=== PATIENT | female | born 1935 | race Caucasian/White ===

== ENCOUNTER 2019-10-29 05:13 | Inpatient (IN) | payer MEDICARE, OTHER ==
[2019-10-29] MEDS ORDERED: NITROGLYCERIN SL TABS 0.4 MG TAB SUBLINGUAL STA ×2 (05:22)
--- NOTE | 2019-10-29 05:31 | ED ---
SOB HPI - General Stated Complaint: Chest Pain Time Seen by Provider: 10/29/19 05:18 Source: patient, EMS Mode of arrival: EMS Limitations: physical limitation (There is underlying dementia.) - History of Present Illness Initial Comments: Patient is an 84-year-old woman brought to be viral for shortness of breath. That started this morning. EMS reports that when they arrived they found the patient and a tripod position, diaphoretic and having apparent respiratory distress. The patient does have some underlying dementia so history is limited. Patient is denying chest or abdominal pain. She had been given some treatment prior to arrival and on arrival she states her breathing is better area she on arrival is just requesting to have something to eat. MD Complaint: shortness of breath -: hour(s) - Related Data Home Medications Medication Instructions Recorded Confirmed Aspirin EC [Ecotrin Low Dose] 81 mg PO DAILY 10/29/19 10/29/19 Brimonidine Tartrate/Timolol 1 drop BOTH EYES BID 10/29/19 10/29/19 [Combigan 0.2%-0.5% Eye Drops] Latanoprost [Xalatan 0.005%] 1 drop BOTH EYES HS 10/29/19 10/29/19 Memantine [Namenda] 10 mg PO BID 10/29/19 10/29/19 Vit C/E/Zn/Coppr/Lutein/Zeaxan 1 cap PO DAILY 10/29/19 10/29/19 [Preservision Areds 2 Softgel] Previous Rx's Medication Instructions Recorded Carvedilol [Coreg] 3.125 mg PO BID-W/MEALS #60 tab 10/31/19 Lisinopril [Zestril] 10 mg PO 1200 #30 tab 10/31/19 amLODIPine [Norvasc] 5 mg PO DAILY #30 tab 10/31/19 Allergies Allergy/AdvReac Type Severity Reaction Status Date / Time No Known Allergies Allergy Verified 10/29/19 07:35 Review of Systems ROS Statement: Those systems with pertinent positive or pertinent negative responses have been documented in the HPI. ROS Other: All systems not noted in ROS Statement are negative. Limitations: ROS unobtainable due to patients medical condition (Dementia) Constitutional: Denies: fever Respiratory: Reports: dyspnea. Denies: cough, hemoptysis Cardiovascular: Denies: chest pain, palpitations, edema Gastrointestinal: Denies: abdominal pain, vomiting Musculoskeletal: Denies: back pain Neurological: Denies: headache Past Medical History Past Medical History: Hypertension History of Any Multi-Drug Resistant Organisms: None Reported Past Surgical History: Appendectomy Smoking Status: Former smoker Past Alcohol Use History: None Reported Past Drug Use History: None Reported General Exam General appearance: alert, in distress (There is mild respiratory distress) Head exam: Present: atraumatic, normocephalic Eye exam: Present: normal appearance. Absent: scleral icterus, conjunctival injection ENT exam: Present: mucous membranes dry Respiratory exam: Present: respiratory distress, rales. Absent: wheezes, rhonchi, stridor, accessory muscle use, decreased breath sounds, prolonged expiratory Cardiovascular Exam: Present: regular rate, normal rhythm, systolic murmur, gallop. Absent: diastolic murmur, rubs GI/Abdominal exam: Present: soft. Absent: distended, tenderness, guarding, rebo und, rigid, mass Extremities exam: Present: normal inspection, normal capillary refill. Absent: pedal edema, calf tenderness Back exam: Present: normal inspection. Absent: CVA tenderness (R), CVA tenderness (L) Neurological exam: Present: alert Skin exam: Present: dry, intact, normal color, other (Skin is cool). Absent: rash, diaphoretic Course Vital Signs 10/29/19 10/29/19 10/29/19 05:18 05:28 05:35 Temperature Pulse Rate 77 73 71 Pulse Rate [ Pulse Oximetery ] Respiratory 26 H 20 Rate Blood Pressure 187/97 155/82 143/87 Blood Pressure [Left Arm] O2 Sat by Pulse 86 L 93 L 97 Oximetry 10/29/19 10/29/19 10/29/19 05:44 06:30 07:25 Temperature Pulse Rate 63 61 Pulse Rate [ Pulse Oximetery ] Respiratory 24 21 Rate Blood Pressure 143/85 139/79 Blood Pressure [Left Arm] O2 Sat by Pulse 97 95 95 Oximetry 10/29/19 10/29/19 10/29/19 08:00 09:17 12:00 Temperature 97.7 F Pulse Rate Pulse Rate [ 60 60 52 L Pulse Oximetery ] Respiratory 18 18 18 Rate Blood Pressure Blood Pressure 179/87 [Left Arm] O2 Sat by Pulse 93 L Oximetry Medical Decision Making - Lab Data Result diagrams: 10/30/19 05:59 10/30/19 05:59 Lab Results 10/29/19 10/29/19 10/29/19 Range/Units 05:34 05:34 05:34 WBC 6.8 (3.8-10.6) k/uL RBC 4.77 (3.80-5.40) m/uL Hgb 14.2 (11.4-16.0) gm/dL Hct 44.9 (34.0-46.0) % MCV 94.1 (80.0-100.0) fL MCH 29.7 (25.0-35.0) pg MCHC 31.6 (31.0-37.0) g/dL RDW 14.1 (11.5-15.5) % Plt Count 155 (150-450) k/uL Neutrophils % 77 % Lymphocytes % 17 % Monocytes % 3 % Eosinophils % 2 % Basophils % 0 % Neutrophils # 5.2 (1.3-7.7) k/uL Lymphocytes # 1.2 (1.0-4.8) k/uL Monocytes # 0.2 (0-1.0) k/uL Eosinophils # 0.1 (0-0.7) k/uL Basophils # 0.0 (0-0.2) k/uL PT (9.0-12.0) sec INR (<1.2) APTT (22.0-30.0) sec Sodium 139 (137-145) mmol/L Potassium 5.6 H (3.5-5.1) mmol/L Chloride 107 (98-107) mmol/L Carbon Dioxide 25 (22-30) mmol/L Anion Gap 7 mmol/L BUN 34 H (7-17) mg/dL Creatinine 1.00 (0.52-1.04) mg/dL Est GFR (CKD-EPI)AfAm 59 (>60 ml/min/1.73 sqM) Est GFR (CKD-EPI)NonAf 52 (>60 ml/min/1.73 sqM) Glucose 176 H (74-99) mg/dL Calcium 9.0 (8.4-10.2) mg/dL Magnesium 1.9 (1.6-2.3) mg/dL Total Bilirubin 1.8 H (0.2-1.3) mg/dL AST 126 H (14-36) U/L ALT 68 H (4-34) U/L Alkaline Phosphatase 50 (38-126) U/L Troponin I (0.000-0.034) ng/mL NT-Pro-B Natriuret Pep 4250 pg/mL Total Protein 6.9 (6.3-8.2) g/dL Albumin 3.9 (3.5-5.0) g/dL 10/29/19 10/29/19 Range/Units 05:34 05:34 WBC (3.8-10.6) k/uL RBC (3.80-5.40) m/uL Hgb (11.4-16.0) gm/dL Hct (34.0-46.0) % MCV (80.0-100.0) fL MCH (25.0-35.0) pg MCHC (31.0-37.0) g/dL RDW (11.5-15.5) % Plt Count (150-450) k/uL Neutrophils % % Lymphocytes % % Monocytes % % Eosinophils % % Basophils % % Neutrophils # (1.3-7.7) k/uL Lymphocytes # (1.0-4.8) k/uL Monocytes # (0-1.0) k/uL Eosinophils # (0-0.7) k/uL Basophils # (0-0.2) k/uL PT 10.3 (9.0-12.0) sec INR 1.0 (<1.2) APTT 23.7 (22.0-30.0) sec Sodium (137-145) mmol/L Potassium (3.5-5.1) mmol/L Chloride (98-107) mmol/L Carbon Dioxide (22-30) mmol/L Anion Gap mmol/L BUN (7-17) mg/dL Creatinine (0.52-1.04) mg/dL Est GFR (CKD-EPI)AfAm (>60 ml/min/1.73 sqM) Est GFR (CKD-EPI)NonAf (>60 ml/min/1.73 sqM) Glucose (74-99) mg/dL Calcium (8.4-10.2) mg/dL Magnesium (1.6-2.3) mg/dL Total Bilirubin (0.2-1.3) mg/dL AST (14-36) U/L ALT (4-34) U/L Alkaline Phosphatase (38-126) U/L Troponin I 0.019 (0.000-0.034) ng/mL NT-Pro-B Natriuret Pep pg/mL Total Protein (6.3-8.2) g/dL Albumin (3.5-5.0) g/dL - EKG Data -: EKG Interpreted by Me EKG shows normal: sinus rhythm (Rate 73 bpm), axis (Cumming deviation), intervals (QRS duration 148 ms, prolonged consistent with a left axis deviation. IN interval 140 ms, QTC 491 ms, both normal), QRS complexes (Left Bundle-branch block pattern), ST-T waves (Normal) Disposition Clinical Impression: Congestive heart failure, Hypertensive emergency Disposition: ADMITTED IP TO THIS HOSP Condition: Stable Is patient prescribed a controlled substance at d/c from ED?: No
--- NOTE | 2019-10-29 05:46 | XR ---
EXAMINATION TYPE: XR chest 1V portable DATE OF EXAM: 10/29/2019 COMPARISON: NONE HISTORY: Chest pain TECHNIQUE: Single view FINDINGS: Heart is enlarged. There is pulmonary interstitial and alveolar edema. There is slight blun ting costophrenic angles. Thoracic aorta is atheromatous. IMPRESSION: There is pulmonary edema probably from congestive heart failure. Developing RDS is possib le.
[2019-10-29 05:57] LABS: Basophils % (A) 0 %; Eosinophils # (A) 0.1 k/uL (0-0.7); Eosinophils % (A) 2 %; HCT 44.9 % (34.0-46.0); HGB 14.2 gm/dL (11.4-16.0); Lymphocytes # (A) 1.2 k/uL (1.0-4.8); Lymphocytes % (A) 17 %; MCH 29.7 pg (25.0-35.0); MCHC 31.6 g/dL (31.0-37.0); MCV 94.1 fL (80.0-100.0); Mean Platelet Volume 9.5; Monocytes # (A) 0.2 k/uL (0-1.0); Monocytes % (A) 3 %; Neutrophils # (A) 5.2 k/uL (1.3-7.7); Neutrophils % (A) 77 %; Platelet Count 155 k/uL (150-450); RBC 4.77 m/uL (3.80-5.40); RDW 14.1 % (11.5-15.5); WBC 6.8 k/uL (3.8-10.6)
[2019-10-29 06:07] LABS: Albumin 3.9 g/dL (3.5-5.0); Magnesium 1.9 mg/dL (1.6-2.3); Total Bilirubin 1.8 mg/dL (0.2-1.3); Total Protein 6.9 g/dL (6.3-8.2)
[2019-10-29 06:10] LABS: Potassium 5.6 mmol/L (3.5-5.1)
[2019-10-29 06:31] LABS: Partial Thromboplastin Time 23.7 sec (22.0-30.0); Prothrombin Time 10.3 sec (9.0-12.0)
[2019-10-29] MEDS ORDERED: NITROGLYCERIN OINT 1 INCH/GM PACKET TOPICAL STA (07:24)
[2019-10-29] MEDS ORDERED: METOPROLOL SUCCINATE (ER) 25 MG TAB.ER.24H PO SCH ×2 (09:00→10:00)
[2019-10-29] MEDS ORDERED: METOPROLOL TARTRATE 25 MG TAB PO SCH (09:00)
[2019-10-29] MEDS ORDERED: NON FORMULARY DRUG (Brimonidine Tartrate/Timolol [Combigan 0.2%-0.5% Eye Drops] 1 DROP) BOTH EYES SCH (09:00)
[2019-10-29] MEDS: MEMANTINE 10 MG TAB PO SCH ×2 (09:21→20:46)
[2019-10-29] MEDS: FUROSEMIDE 10 MG/ML 4 ML VIAL IV SCH ×2 (09:21→20:46)
[2019-10-29] MEDS ORDERED: hydrALAZINE HCL 20 MG/ML 1 ML VIAL IVP PRN (09:54)
[2019-10-29] MEDS: TIMOLOL 0.5% OPHTH DROPS 5 ML BTL BOTH EYES SCH ×2 (10:02→20:57)
[2019-10-29] MEDS: BRIMONIDINE TARTRATE 0.2% DROPS 5 ML BTL BOTH EYES SCH ×2 (10:03→20:56)
--- NOTE | 2019-10-29 12:57 | P.CRDCN ---
History of Present Illness Consult date: 10/29/19 History of present illness: This is a 84-year-old female with history of hypertension and dementia who was brought to the emergency room with complaints of shortness of breath. Patient denied any chest pain. Patient is claimed that she was taking some water pills also. Patient chest x-ray on admission showed evidence of congestive heart failure. Patient was treated with IV diuretics with improvement of her symptoms. She seemed relatively comfortable. Her EKG showed sinus rhythm with evidence of left bundle-branch block pattern. Lungs at this point appear to be relatively clear. Heart is regular. Since appears that patient has congestive heart failure probably related to systolic dysfunction. We'll get an echocardiogram. We will start her on lisinopril along with Coreg and diuretics. Her potassium is high. Further recommendations depend upon the clinical course and findings on the echocardiogram Review of Systems As per the chart Past Medical History Past Medical History: Hypertension Additional Past Medical History / Comment(s): dementia History of Any Multi-Drug Resistant Organisms: None Reported Past Surgical History: Appendectomy Smoking Status: Former smoker Past Alcohol Use History: None Reported Past Drug Use History: None Reported Medications and Allergies Home Medications Medication Instructions Recorded Confirmed Type Aspirin EC [Ecotrin Low Dose] 81 mg PO DAILY 10/29/19 10/29/19 History Brimonidine Tartrate/Timolol 1 drop BOTH EYES BID 10/29/19 10/29/19 History [Combigan 0.2%-0.5% Eye Drops] Latanoprost [Xalatan 0.005%] 1 drop BOTH EYES HS 10/29/19 10/29/19 History Memantine [Namenda] 10 mg PO BID 10/29/19 10/29/19 History Metoprolol Succinate (ER) [Toprol 25 mg PO DAILY 10/29/19 10/29/19 History Xl] Vit C/E/Zn/Coppr/Lutein/Zeaxan 1 cap PO DAILY 10/29/19 10/29/19 History [Preservision Areds 2 Softgel] Allergies Allergy/AdvReac Type Severity Reaction Status Date / Time No Known Allergies Allergy Verified 10/29/19 07:35 Physical Exam Vitals: Vital Signs Temp Pulse Pulse Resp BP BP Pulse Ox 10/29/19 09:17 97.7 F 60 18 179/87 93 L 10/29/19 08:00 60 18 10/29/19 07:25 95 10/29/19 06:30 61 21 139/79 95 10/29/19 05:44 63 24 143/85 97 10/29/19 05:35 71 20 143/87 97 10/29/19 05:28 73 155/82 93 L 10/29/19 05:18 77 26 H 187/97 86 L Intake and Output 10/28/19 10/29/19 10/29/19 22:59 06:59 14:59 Intake Total 200 Balance 200 Intake: Oral 200 Other: Weight 70.307 kg 70.307 kg GENERAL EXAM: Patient is alert and oriented and doesn't appear to be in any acute distress HEENT: Normocephalic. Normal reaction of pupils, equal size, normal range of extraocular motion. No erythema or exudates in the throat. NECK: No masses, no nuchal rigidity. CHEST: No chest wall deformity. LUNGS: Equal air entry with no crackles or wheeze. HEART: S1 and S2 normal with no audible mumurs or gallops. Regular rhythm, femorals equal on both sides.. ABDOMEN: No hepatosplenomegaly, normal bowel sounds, no guarding or rigidity. SKIN: No rashes CENTRAL NERVOUS SYSTEM: No focal deficits. EXTREMITIES: No cyanosis, clubbing or edema. Results 10/29/19 05:34 10/29/19 05:34 Cardiac Enzymes 10/29/19 10/29/19 Range/Units 05:34 05:34 AST 126 H (14-36) U/L Troponin I 0.019 (0.000-0.034) ng/mL Coagulation 10/29/19 Range/Units 05:34 PT 10.3 (9.0-12.0) sec APTT 23.7 (22.0-30.0) sec CBC 10/29/19 Range/Units 05:34 WBC 6.8 (3.8-10.6) k/uL RBC 4.77 (3.80-5.40) m/uL Hgb 14.2 (11.4-16.0) gm/dL Hct 44.9 (34.0-46.0) % Plt Count 155 (150-450) k/uL Comprehensive Metabolic Panel 10/29/19 Range/Units 05:34 Sodium 139 (137-145) mmol/L Potassium 5.6 H (3.5-5.1) mmol/L Chloride 107 (98-107) mmol/L Carbon Dioxide 25 (22-30) mmol/L BUN 34 H (7-17) mg/dL Creatinine 1.00 (0.52-1.04) mg/dL Glucose 176 H (74-99) mg/dL Calcium 9.0 (8.4-10.2) mg/dL AST 126 H (14-36) U/L ALT 68 H (4-34) U/L Alkaline Phosphatase 50 (38-126) U/L Total Protein 6.9 (6.3-8.2) g/dL Albumin 3.9 (3.5-5.0) g/dL Current Medications Generic Name Dose Route Start Last Admin Trade Name Freq PRN Reason Stop Dose Admin Amlodipine Besylate 2.5 mg 10/30/19 09:00 Norvasc PO DAILY GILMER Brimonidine Tartrate 1 drops 10/29/19 09:00 10/29/19 10:03 Alphagan P 0.2% Ophth Soln BOTH EYES 1 drops BID GILMER Administration Carvedilol 3.125 mg 10/29/19 17:30 Coreg PO BID-W/MEALS GILMER Furosemide 40 mg 10/29/19 09:00 10/29/19 09:21 Lasix IV 40 mg BID GILMER Administration Hydralazine HCl 10 mg 10/29/19 09:54 10/29/19 10:02 Apresoline IVP 10 mg Q6HR PRN Administration Blood Pressure - High Lisinopril 10 mg 10/30/19 09:00 Zestril PO DAILY GILMER Memantine 10 mg 10/29/19 09:00 10/29/19 09:21 Namenda PO 10 mg BID GILMER Administration Sodium Chloride 10 ml 10/29/19 09:00 10/29/19 09:22 Saline Flush IV 10 ml BID GILMER Administration Timolol Maleate 1 drops 10/29/19 09:00 10/29/19 10:02 Timoptic BOTH EYES 1 drops BID GILMER Administration Intake and Output 10/28/19 10/29/19 10/29/19 22:59 06:59 14:59 Intake Total 200 Balance 200 Intake: Oral 200 Other: Weight 70.307 kg 70.307 kg Patient Weight 10/30/19 06:59 Weight 70.307 kg 10/29/19 05:34 10/29/19 05:34 EKG Interpretations (text) Sinus rhythm with left bundle-branch block Assessment and Plan (1) Congestive heart failure Current Visit: Yes Status: Acute Code(s): I50.9 - HEART FAILURE, UNSPECIFIED SNOMED Code(s): 77596697 (2) Hypertensive emergency Current Visit: Yes Status: Acute Code(s): I16.1 - HYPERTENSIVE EMERGENCY SNOMED Code(s): 923712031223032 (3) Left bundle branch block Current Visit: Yes Status: Acute Code(s): I44.7 - LEFT BUNDLE-BRANCH BLOCK, UNSPECIFIED SNOMED Code(s): 47827378 Plan: Continue with IV diuretics. Add lisinopril and Norvasc along with nitrates. I will also start her on Coreg. Get an echocardiogram. Further recommendations depend upon the findings on the above tests
--- NOTE | 2019-10-29 15:14 | HP ---
HISTORY AND PHYSICAL This is an 84-year-old white female with hypertension acceleration of over 200 systolic on admission to the emergency room and dementia and with shortness of breath. She has large pleural effusion on her chest x-ray. She had stopped 2 out of her 3 heart pills per some physician she had seen. She says she has congestive heart failure. Her diet had bad during the holidays. EKG shows left bundle branch block. Heart is regular. She has congestive heart failure, systolic in nature. Cardiology is awaiting evaluation. She has some bradycardia this morning also. She is maintaining saturations in the 92-93 range on 3 L. She takes no oxygen at home. Chest x-ray does show pleural effusion. PAST MEDICAL HISTORY: Hypertension, CHF, dementia, possible nocturnal hypoxemia. PAST SURGICAL HISTORY: Appendectomy. Former smoker. No alcohol. No illicit drugs. She takes Namenda 10 mg b.i.d. for memory, which is not working well, possibly due to nocturnal hypoxemia, metoprolol succinate 25 mg daily, aspirin 81 mg daily, timolol drops both eyes b.i.d., Xalatan drops, 1 drop in each eye daily. ALLERGIES: Negative Saturation as mentioned above on 3 L. Blood pressure 130s up to 210 systolic/70s to 90s, temp 97.7, pulse 60 to 70. CARDIOVASCULAR: S1, S2. LUNGS: Show rales at the base. PSYCH: She is giving appropriate answers. ABDOMEN: Soft, distended, obese. SKIN: No rash, excoriations, improving. EXTREMITIES: No cyanosis, clubbing, edema. Potassium 5.6, BUN is 34, creatinine 1.0. Troponins negative. AST is 126. White count 6.8, hemoglobin 14.2, albumin 3.9, glucose 176,. Home medicines were reviewed. EKG sinus rhythm, left bundle branch block. ASSESSMENT: Congestive heart failure, suspect acute on chronic systolic, hypertensive emergency, left bundle branch block, oxygen-dependent congestive heart failure, suspect nocturnal hypoxemia. Memory loss due to dementia. Rule out diabetes. Continue current treatments. Cardiology consult, Pulmonary consult. Possible pleural effusion. Please see further orders. MMODL / IJN: [id number] /
--- NOTE | 2019-10-29 15:48 | ECHOF ---
Referral Reason:Chest pain and cardiomyopathy MEASUREMENTS -------- HEIGHT: 152.4 cm WEIGHT: 68.9 kg BP: RVIDd: 2.6 cm (< 3.3) IVSd: 1.3 cm (0.6 - 1.1) LVIDd: 4.2 cm (3.9 - 5.3) LVPWd: 1.5 cm (0.6 - 1.1) IVSs: 1.8 cm LVIDs: 3.5 cm LVPWs: 1.8 cm LA Diam: 3.5 cm (2.7 - 3.8) LAESV Index (A-L): 23.48 ml/m MV EXCURSION: 18.395 mm (> 18.000) MV EF SLOPE: 39 mm/s (70 - 150) EPSS: 1.0 cm MV E Hubert: 0.58 m/s MV DecT: 252 ms MV A Hubert: 0.85 m/s MV E/A Ratio: 0.68 RAP: 5.00 mmHg RVSP: 45.92 mmHg FINDINGS -------- Sinus rhythm. This was a techncally difficult study with suboptimal views, , Lumason utilized for enhancement of im ages. The left ventricular size is normal. There is mild concentric left ventricular hypertrophy. Overa ll left ventricular systolic function is mild-moderately impaired with, an EF between 40 - 45 %. Mi d anterior LV wall motion is hypokinetic. Mid anteroseptal LV wall motion is hypokinetic. Apica l anterior LV wall motion is hypokinetic. Apical septum LV wall motion is hypokinetic. The right ventricle is normal in size. Normal LA size by volume 22+/-6 ml/m2. The right atrial size is normal. 5.0mg OF Lumason UTLIZED: 2 OR MORE WALL SEGMENTS NOT VISUALIZED. There is mild aortic valve sclerosis. There is no evidence of aortic regurgitation. Mild mitral annular calcification present. [id number] mitral regurgitation is present. Mild tricuspid regurgitation present. There is moderate pulmonary hypertension. The right ventric ular systolic pressure, as measured by Doppler, is 45.92mmHg. The pulmonic valve was not well visualized. The aortic root size is normal. Echo free space represents a pericardial fat pad. CONCLUSIONS -------- 1. Sinus rhythm. 2. This was a techncally difficult study with suboptimal views, , Lumason utilized for enhancement of images. 3. The left ventricular size is normal. 4. There is mild concentric left ventricular hypertrophy. 5. Overall left ventricular systolic function is mild-moderately impaired with, an EF between 40 - 45 %. 6. Mid anterior LV wall motion is hypokinetic. 7. Mid anteroseptal LV wall motion is hypokinetic. 8. Apical anterior LV wall motion is hypokinetic. 9. Apical septum LV wall motion is hypokinetic. 10. Normal LA size by volume 22+/-6 ml/m2. 11. 5.0mg OF Lumason UTLIZED: 2 OR MORE WALL SEGMENTS NOT VISUALIZED. 12. There is mild aortic valve sclerosis. 13. Mild mitral annular calcification present. 14. Mild tricuspid regurgitation present. 15. There is moderate pulmonary hypertension. 16. The pulmonic valve was not well visualized. 17. Echo free space represents a pericardial fat pad. UNDERWRITING [employer]ERKS SUPERVISOR: Joanne Davalos RDCS
[2019-10-29] MEDS: CARVEDILOL 3.125 MG TAB PO SCH (17:27)
[2019-10-30 05:31] LABS: Hemoglobin A1C 5.6 % (4.0-6.0)
[2019-10-30 06:24] LABS: Basophils % (A) 0 %; Eosinophils # (A) 0.1 k/uL (0-0.7); Eosinophils % (A) 2 %; HCT 45.3 % (34.0-46.0); HGB 14.5 gm/dL (11.4-16.0); Lymphocytes # (A) 1.4 k/uL (1.0-4.8); Lymphocytes % (A) 21 %; MCH 29.7 pg (25.0-35.0); MCHC 31.9 g/dL (31.0-37.0); MCV 93.1 fL (80.0-100.0); Mean Platelet Volume 7.9; Monocytes # (A) 0.3 k/uL (0-1.0); Monocytes % (A) 4 %; Neutrophils % (A) 72 %; Platelet Count 140 k/uL (150-450); RBC 4.87 m/uL (3.80-5.40); RDW 14.1 % (11.5-15.5)
[2019-10-30 06:35] LABS: Albumin 3.9 g/dL (3.5-5.0); Calcium 9.6 mg/dL (8.4-10.2); Potassium 3.7 mmol/L (3.5-5.1); Total Bilirubin 0.9 mg/dL (0.2-1.3); Total Protein 6.8 g/dL (6.3-8.2)
[2019-10-30] MEDS: CARVEDILOL 3.125 MG TAB PO SCH ×2 (06:53→16:21)
--- NOTE | 2019-10-30 08:48 | US ---
EXAMINATION TYPE: US abdomen complete DATE OF EXAM: 10/30/2019 COMPARISON: NONE CLINICAL HISTORY: lft high. elevated liver enzymes, cholecystectomy EXAM MEASUREMENTS: Liver Length: 15.0 cm Gallbladder Wall: Surgically absent CBD: 0.4 cm Spleen: 13.4 cm Right Kidney: 9.2 x 3.6 x 3.3 cm Left Kidney: 9.9 x 4.0 x 3.4 cm Pancreas: Tail obscured by overlying bowel gas, duct = 0.2cm Liver: appears wnl Gallbladder: Surgically absent Evidence for sonographic Celeste's sign: no CBD: wnl Spleen: slightly enlarged, granulomas . Normal less than 12.5 cm. Right Kidney: no evidence of hydronephrosis Left Kidney: no evidence of hydronephrosis Upper IVC: wnl Abd Aorta: calcifications noted throughout visualized portions, bifurcation obscured IMPRESSION: 1. Mild splenomegaly.
[2019-10-30] MEDS ORDERED: LISINOPRIL 10 MG TAB PO SCH (09:00)
[2019-10-30] MEDS ORDERED: amLODIPine 2.5 MG TAB PO SCH (09:00)
[2019-10-30] MEDS: amLODIPine 5 MG TAB PO SCH (09:15)
[2019-10-30] MEDS: BRIMONIDINE TARTRATE 0.2% DROPS 5 ML BTL BOTH EYES SCH ×2 (09:15→20:04)
[2019-10-30] MEDS: TIMOLOL 0.5% OPHTH DROPS 5 ML BTL BOTH EYES SCH ×2 (09:15→20:04)
[2019-10-30] MEDS: FUROSEMIDE 10 MG/ML 4 ML VIAL IV SCH (09:15)
[2019-10-30] MEDS: MEMANTINE 10 MG TAB PO SCH ×2 (09:15→20:04)
[2019-10-30 10:25] VITALS: BMI 29.7
--- NOTE | 2019-10-30 13:50 | CONS ---
CONSULTATION Libra Black is an 84-year-old female who presented to the ED at [facility] on September2018. She came in because of shortness of breath. EMS arrived to her house. She was in a tripod position, diaphoretic and had respiratory distress and she was also quite hypertensive with a blood pressure over 200 systolic. She subsequently was admitted for further evaluation and management. Patient apparently had been passing out prior to this and had 2 of her antihypertensive medications discontinued by gastroenterology physician. PAST MEDICAL HISTORY: Positive for hypertension, appendectomy. 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 FAMILY HISTORY: Noncontributory. MEDICATIONS: Prior to admission were vitamin tablet, metoprolol-XL 25 mg p.o. daily, Namenda 10 mg p.o. b.i.d., Xalatan eye drops. Brimonidine eye drops and aspirin EC 81 mg a day. REVIEW OF SYSTEMS: Noncontributory. PHYSICAL EXAMINATION: Patient is lying in bed. Respiratory rate is 20, pulse rate of 64, temperature 97.8, blood pressure 138/61, O2 saturation on room air is 90%, on 2 L by nasal cannula is 94%. HEENT was pupils are equal. No jugular venous distention. Chest reveals scattered crackles in the bases. Cardiovascular system is S1, S2. No S3 and S4. No murmurs. ABDOMEN: Soft. There is trace pedal edema. Sodium is 138, potassium 3.7, chloride 99, bicarb 32, BUN 35, creatinine of 1.01, AST of 48. White count of 7, hemoglobin of 14.5, troponin of 0.053. NT proBNP of 4250. Chest x-ray showed evidence of pulmonary edema from congestive heart failure. Abdominal ultrasound showed mild splenomegaly. Echocardiogram with Doppler showed an ejection fraction of 40-45 percent. IMPRESSION: At this time: 1. Shortness of breath is secondary to congestive heart failure. 2. Dementia. 3. Hypertension. At this point in time, agree with controlling her blood pressure. I agree with afterload reduction with lisinopril. Keep her in negative fluid balance. Keep her on GI and DVT prophylaxis. Depending on how she does, we shall make further changes to care. I would like to thank you for allowing me to participate in her care. MMODL / IJN: [id number] /
--- NOTE | 2019-10-30 14:10 | P.PN ---
Subjective Patient is resting comfortably in bed no chest discomfort or shortness of breath no dizziness lightheadedness or headache This patient follows with Dr. Edil auguste, panel beater at [facility] She's had a history of multiple syncopal spells and he had backed off on her antihypertensive medications She was admitted with sudden onset of shortness of breath with significantly elevated blood pressures. After resumption of her blood pressure medications her symptoms have been relieved. She has no chest discomfort at this time but upon admission she was expressing some chest discomfort On examination she is afebrile 97.8F pulse rate in the 60s blood pressure 138/61 mmHg Breath sounds are clear no rhonchi no crackles Possible hepatojugular reflux Rhythm is regular Abdomen soft Extremities warm no edema Potassium 3.7 BUN 35 creatinine 1.8 The troponin 0.58 Impression hypertensive urgency, symptomatic Borderline troponins, likely demand ischemia on account of hypertensive urgency, type II OR Patient is a lot more comfortable with the blood pressure is well controlled Suggest Stop IV Lasix Continue amlodipine 5 mg daily, continue carvedilol 3 permanent 5 mg twice daily Continue lisinopril Stagger blood pressure medications We will follow Objective - Vital Signs Vital signs: Vital Signs Temp 97.8 F 10/30/19 08:00 Pulse 64 10/30/19 11:03 Resp 20 10/30/19 11:03 BP 138/61 10/30/19 11:03 Pulse Ox 90 L 10/30/19 11:03 Intake & Output 10/29/19 10/30/19 10/30/19 18:59 06:59 18:59 Intake Total 780 250 360 Output Total 1200 400 Balance 780 -950 -40 Weight 70.307 kg 71.3 kg 71.3 kg Intake: IV 20 10 0.9 10 Invasive Line 3 20 Oral 760 240 360 Output: Urine 1200 400 Other: Voiding Method Toilet # Voids 1 5 2 # Bowel Movements 1 - Labs CBC & Chem 7: 10/30/19 05:59 10/30/19 05:59 Labs: Abnormal Lab Results - Last 24 Hours (Table) 10/29/19 10/29/19 10/30/19 Range/Units 13:43 17:09 05:59 Plt Count 140 L (150-450) k/uL Carbon Dioxide (22-30) mmol/L BUN (7-17) mg/dL Creatinine (0.52-1.04) mg/dL Glucose (74-99) mg/dL AST (14-36) U/L ALT (4-34) U/L Troponin I 0.053 H* 0.058 H* (0.000-0.034) ng/mL 10/30/19 Range/Units 05:59 Plt Count (150-450) k/uL Carbon Dioxide 32 H (22-30) mmol/L BUN 35 H (7-17) mg/dL Creatinine 1.08 H (0.52-1.04) mg/dL Glucose 110 H (74-99) mg/dL AST 48 H (14-36) U/L ALT 49 H (4-34) U/L Troponin I (0.000-0.034) ng/mL
--- NOTE | 2019-10-30 17:32 | PN ---
PROGRESS NOTE An 84-year-old white female with memory loss and dementia, appears to be improved since yesterday. Her breathing is better. Blood pressure is better. She still remains on 2 L in the mid 90s. Lungs sounds are clear. Cardiovascular S1, S2. Hematologic 2+ edema. BUN is 35, creatinine 1.8. Troponin 0.58. ASSESSMENT AND PLAN: 1. Congestive heart failure systolic in nature. Ejection fraction is 40-45%. 2. Hypertensive urgency, asymptomatic is now improving with IV Lasix. 3. Borderline troponins. 4. Type 2 diabetes mellitus. 5. Switched to oral medications. 6. Off the IV Lasix. 7. Amlodipine 5 mg daily. 8. Carvedilol will be continued. 9. Lisinopril. 10.Stable blood pressure medicines. 11.We will monitor for possible discharge home tomorrow. 12.Whether she needs oxygen or not depending on her improvement. MMODL / IJN: [id number] /
[2019-10-30] MEDS: HEPARIN SODIUM,PORCINE 5,000 UNIT/ML 1 ML VIAL SQ SCH (20:04)
[2019-10-30] MEDS ORDERED: FAMOTIDINE 20 MG TAB PO SCH (21:00)
[2019-10-30 23:26] VITALS: RESP 18
[2019-10-31] MEDS: CARVEDILOL 3.125 MG TAB PO SCH (06:00)
[2019-10-31] MEDS: HEPARIN SODIUM,PORCINE 5,000 UNIT/ML 1 ML VIAL SQ SCH (09:19)
[2019-10-31] MEDS: MEMANTINE 10 MG TAB PO SCH (09:20)
[2019-10-31] MEDS: amLODIPine 5 MG TAB PO SCH (09:20)
[2019-10-31 10:12] VITALS: PULSE 66
[2019-10-31] MEDS: BRIMONIDINE TARTRATE 0.2% DROPS 5 ML BTL BOTH EYES SCH (10:53)
[2019-10-31] MEDS: TIMOLOL 0.5% OPHTH DROPS 5 ML BTL BOTH EYES SCH (10:53)
[2019-10-31] MEDS ORDERED: LISINOPRIL 10 MG TAB PO SCH (12:00)
[2019-10-31 12:57] VITALS: BP 150/75; TEMP 98.3
[2019-10-31] MEDS ORDERED: ACETAMINOPHEN TAB 325 MG TAB PO PRN (13:56)
--- NOTE | 2019-10-31 14:01 | P.PN ---
Subjective Progress Note Date: 10/31/19 This is a 84-year-old female with history of hypertension and dementia who was brought to the emergency room with complaints of shortness of breath. Urology consultation was initially requested because of accelerated hypertension. Blood pressure today ranging from 138 systolic to 150 systolic over 60-70. A cardiogram with Doppler study revealed an ejection fraction of 40-45%. Objective - Vital Signs Vital signs: Vital Signs Temp 98.3 F 10/31/19 11:45 Pulse 66 10/31/19 11:45 Resp 18 10/31/19 11:45 BP 150/75 10/31/19 11:45 Pulse Ox 95 10/31/19 11:45 Intake & Output 10/30/19 10/31/19 10/31/19 18:59 06:59 18:59 Intake Total 480 240 Output Total 400 1000 Balance 80 -1000 240 Weight 71.3 kg 71.7 kg Intake: Oral 480 240 Output: Urine 400 1000 Other: Voiding Method Toilet # Voids 1 1 2 # Bowel Movements 1 2 - Exam GENERAL EXAM: Patient is alert and oriented and doesn't appear to be in any acute distress HEENT: Normocephalic. Normal reaction of pupils, equal size, normal range of extraocular motion. No erythema or exudates in the throat. NECK: No masses, no nuchal rigidity. CHEST: No chest wall deformity. LUNGS: Equal air entry with no crackles or wheeze. HEART: S1 and S2 normal with no audible mumurs or gallops. Regular rhythm, femorals equal on both sides.. ABDOMEN: No hepatosplenomegaly, normal bowel sounds, no guarding or rigidity. SKIN: No rashes CENTRAL NERVOUS SYSTEM: No focal deficits. EXTREMITIES: No cyanosis, clubbing or edema. - Labs CBC & Chem 7: 10/30/19 05:59 10/30/19 05:59 Assessment and Plan Plan: Assessment and plan #1 hypertensive urgency #2 dementia Plan From cardiology's perspective, patient may be able to be discharged home today on current medications. We'll make a follow-up appointment in the office post discharge. DNP note has been reviewed, I agree with a documented findings and plan of care. Patient was seen and examined.
--- NOTE | 2019-10-31 14:58 | P.DS ---
Providers Date of admission: 10/29/19 07:20 Expected date of discharge: 10/31/19 Attending physician: Pacheco Tanner Consults: 10/29/19 07:20 Consult Physician Routine Consulting Provider: Rex Payton Consult Reason/Comments: Hypertensive emergency. Congestive heart failure. Do you want consulting provider notified?: Yes 10/29/19 14:32 Consult Physician Urgent Consulting Provider: Reji Luu Consult Reason/Comments: pleuraleffusion/rsd? Do you want consulting provider notified?: Yes Primary care physician: Joslyn Christine MD Hospital Course: Physical Diagnoses: Hypertensive urgency Acute CHF exacerbation, systolic dysfunction, EF 40-45% Hypoxic respiratory failure, present on admission secondary to the above Dementia, possibly Alzheimer's Diabetes mellitus type II Former nicotine dependence Hospital course: This is an 84-year-old female admitted with hypertensive urgency, CHF and multiple other medical issues. Evaluated by cardiology and pulmonary. Echo reporting EF 40-45%. Diuresed well on Lasix IV push with significant clinical improvement. Cleared by cardiology and pulmonary for discharge. Patient is being discharged home with daughter in a stable condition with guarded prognosis. Case management to assist with discharge planning. EXAM GENERAL: Alert and oriented 3, no acute distress CARDIOVASCULAR: S1, S2 regular. No murmur RESPIRATION: Breath sounds diminished in the bases. ABDOMEN: Soft, nontender . No guarding. no masses palpable. Bowel sounds heard. NERVOUS SYSTEM: No gross focal deficits. The impression and plan of care has been dictated as directed. : I performed a history and examination of this patient, discussed the same with the dictator. I agree with the dictator's note ,documented as a scribe. Any additional findings or plans will be noted. Patient Condition at Discharge: Stable Plan - Discharge Summary Discharge Rx Participant: Yes New Discharge Prescriptions: New Carvedilol [Coreg] 3.125 mg PO BID-W/MEALS #60 tab amLODIPine [Norvasc] 5 mg PO DAILY #30 tab Lisinopril [Zestril] 10 mg PO 1200 #30 tab Continue Memantine [Namenda] 10 mg PO BID Brimonidine Tartrate/Timolol [Combigan 0.2%-0.5% Eye Drops] 1 drop BOTH EYES BID Vit C/E/Zn/Coppr/Lutein/Zeaxan [Preservision Areds 2 Softgel] 1 cap PO DAILY Latanoprost [Xalatan 0.005%] 1 drop BOTH EYES HS Aspirin EC [Ecotrin Low Dose] 81 mg PO DAILY Discontinued Metoprolol Succinate (ER) [Toprol Xl] 25 mg PO DAILY Discharge Medication List Aspirin EC [Ecotrin Low Dose] 81 mg PO DAILY 10/29/19 [History] Brimonidine Tartrate/Timolol [Combigan 0.2%-0.5% Eye Drops] 1 drop BOTH EYES BID 10/29/19 [History] Latanoprost [Xalatan 0.005%] 1 drop BOTH EYES HS 10/29/19 [History] Memantine [Namenda] 10 mg PO BID 10/29/19 [History] Vit C/E/Zn/Coppr/Lutein/Zeaxan [Preservision Areds 2 Softgel] 1 cap PO DAILY 10/29/19 [History] Carvedilol [Coreg] 3.125 mg PO BID-W/MEALS #60 tab 10/31/19 [Rx] Lisinopril [Zestril] 10 mg PO 1200 #30 tab 10/31/19 [Rx] amLODIPine [Norvasc] 5 mg PO DAILY #30 tab 10/31/19 [Rx] Follow up Appointment(s)/Referral(s): Joslyn Christine MD [Primary Care Provider] - 11/07/19 1:30 pm Jaspal Ramirez MD [STAFF PHYSICIAN] - 11/18/19 2:15 pm (Industrial Psychologist. ) Ambulatory/Diagnostic Orders: Complete Blood Count w/diff [LAB.AMB] Time Frame: 3 Days, Location: None Selected Patient Instructions/Handouts: Heart Failure (DC), Pulmonary Edema (DC), Heart Healthy Diet (DC) Activity/Diet/Wound Care/Special Instructions: Case management to assist with discharge planning, patient with dementia. O2 sat on room air after ambulation:
--- NOTE | 2019-11-06 07:47 | CDI ---
Documentation Clarification Form Date: 11/06/19 From: Yarelis Odonnell Phone: If you have a question about this query, please contact Lauren Malik, Sheriff Detective at [phone] between 8am and 5pm. Admit Date: 10/29/19 Discharge Date: 10/31/19 Patient Name: Libra Black Visit Number: [id number] ATTENTION: The Clinical Documentation Specialists (CDI) and [facility] Coding Staff appreciate your assistance in clarifying documentation. Please respond to the clarification below the line at the bottom and electronically sign. The CDI & [facility] Coding staff will review the response and follow-up if needed. Please note: Queries are made part of the Legal Health Record. If you have any questions, please contact the author of this message via ITS. Dear Dr. Pahceco Tanner, Hypoxic respiratory failure is documented in the DS. History/Risk Factors: Dementia, hx smoking, HTN heart disease with ac on chr systolic CHF, Clnical indicators: Patient found in a tripod position, diaphoretic and having respiratory distress. Vital signs: P-77, R-26, O2 Sat 86 Treatment: IV Lasix 40 mg BID, Please specify the acuity of hypoxic respiratory failure with terms such as: Acute Chronic Acute and chronic Other (please specify in the medical record) Unable to determine MTDD
--- NOTE | 2019-11-07 09:41 | DS ---
DISCHARGE SUMMARY ADDENDUM: Acute on chronic systolic heart failure. MMODL / IJN: [id number] /
== END 2019-10-31 16:34 | disposition home or self-care (01) | DRG 280 ==
LOC: EC 05:13 → SUPCPDRO 05:13 → 3SCARD 07:20
PROVIDERS: ADMIT Family Medicine; ATTEND Family Medicine
DX: I11.0 Hypertensive heart disease with heart failure (principal); I21.A1 Myocardial infarction type 2; J96.91 Respiratory failure, unspecified with hypoxia; I16.1 Hypertensive emergency; I50.23 Acute on chronic systolic (congestive) heart failure; F03.90 Unspecified dementia, unspecified severity, without behavioral disturbance, psychotic disturbance, mood disturbance, and anxiety; I44.7 Left bundle-branch block, unspecified; Z79.82 Long term (current) use of aspirin; Z99.81 Dependence on supplemental oxygen; Z79.899 Other long term (current) drug therapy; Z87.891 Personal history of nicotine dependence; Z90.49 Acquired absence of other specified parts of digestive tract; Z98.890 Other specified postprocedural states; E11.9 Type 2 diabetes mellitus without complications
CPT/HCPCS: 36415; 71045; 76700; 80053; 83036; 83735; 83880; 84443; 84484; 85025; 85610; 85730; 93005; 93306; 96374; 96375; 99285

== ENCOUNTER 2019-12-14 00:27 | Emergency (ER) | payer MEDICARE, OTHER ==
[2019-12-14 00:34] VITALS: TEMP 98.7
[2019-12-14 01:09] LABS: Basophils # (A) 0.1 k/uL (0-0.2); Basophils % (A) 1 %; Eosinophils # (A) 0.1 k/uL (0-0.7); Eosinophils % (A) 2 %; HCT 44.6 % (34.0-46.0); HGB 14.2 gm/dL (11.4-16.0); Lymphocytes # (A) 1.1 k/uL (1.0-4.8); Lymphocytes % (A) 18 %; MCHC 31.9 g/dL (31.0-37.0); MCV 93.8 fL (80.0-100.0); Mean Platelet Volume 7.5; Monocytes # (A) 0.3 k/uL (0-1.0); Monocytes % (A) 5 %; Neutrophils # (A) 4.6 k/uL (1.3-7.7); Neutrophils % (A) 73 %; Platelet Count 129 k/uL (150-450); RBC 4.75 m/uL (3.80-5.40); RDW 13.7 % (11.5-15.5); WBC 6.3 k/uL (3.8-10.6)
--- NOTE | 2019-12-14 01:09 | XR ---
EXAMINATION TYPE: XR chest 2V DATE OF EXAM: 12/14/2019 COMPARISON: 10/29/2019 HISTORY: Difficulty breathing TECHNIQUE: FINDINGS: Heart is enlarged. There is no heart failure. There is some mild linear density left lower lobe. There is linear density right midlung. Thoracic aorta is atheromatous. There is no pulmonary co nsolidation. Bony thorax is intact. IMPRESSION: Mild subsegmental atelectasis. There is improved aeration of the lungs and clearing of t he mild pulmonary vascular congestion compared to old exam.
[2019-12-14 01:18] LABS: INR 0.9 (<1.2); Partial Thromboplastin Time 23.3 sec (22.0-30.0); Prothrombin Time 9.8 sec (9.0-12.0)
[2019-12-14 01:21] LABS: Albumin 3.9 g/dL (3.5-5.0); Calcium 9.5 mg/dL (8.4-10.2); Potassium 4.4 mmol/L (3.5-5.1); Total Bilirubin 0.5 mg/dL (0.2-1.3); Total Protein 6.8 g/dL (6.3-8.2)
[2019-12-14 01:24] VITALS: BP 148/68; PULSE 59; RESP 20
--- NOTE | 2019-12-14 01:55 | ED ---
SOB HPI - General Chief Complaint: Shortness of Breath Stated Complaint: SOB Source: patient, EMS Mode of arrival: EMS - History of Present Illness Initial Comments: Libra is a pleasant 84-year-old female presents the ER today for evaluation of shortness of breath. Patient reports that she's not certain what her medical history is, she states that she takes a lot of pills but that her daughter sets some out for her. She states that her daughter's currently out of town but had set of her medications that she states she is taking on the right once. Patient reports that tonight she felt like she was getting a little short of breath so she called the ambulance. She reports feeling better prior to arrival. - Related Data Home Medications Medication Instructions Recorded Confirmed Aspirin EC [Ecotrin Low Dose] 81 mg PO DAILY 10/29/19 10/29/19 Brimonidine Tartrate/Timolol 1 drop BOTH EYES BID 10/29/19 10/29/19 [Combigan 0.2%-0.5% Eye Drops] Latanoprost [Xalatan 0.005%] 1 drop BOTH EYES HS 10/29/19 10/29/19 Memantine [Namenda] 10 mg PO BID 10/29/19 10/29/19 Vit C/E/Zn/Coppr/Lutein/Zeaxan 1 cap PO DAILY 10/29/19 10/29/19 [Preservision Areds 2 Softgel] Previous Rx's Medication Instructions Recorded Carvedilol [Coreg] 3.125 mg PO BID-W/MEALS #60 tab 10/31/19 Lisinopril [Zestril] 10 mg PO 1200 #30 tab 10/31/19 amLODIPine [Norvasc] 5 mg PO DAILY #30 tab 10/31/19 Allergies Allergy/AdvReac Type Severity Reaction Status Date / Time No Known Allergies Allergy Verified 10/29/19 07:35 Review of Systems ROS Statement: Those systems with pertinent positive or pertinent negative responses have been documented in the HPI. ROS Other: All systems not noted in ROS Statement are negative. Past Medical History Past Medical History: Hypertension Additional Past Medical History / Comment(s): dementia History of Any Multi-Drug Resistant Organisms: None Reported Past Surgical History: Appendectomy Past Psychological History: No Psychological Hx Reported Smoking Status: Former smoker Past Alcohol Use History: None Reported Past Drug Use History: None Reported General Exam - General Exam Comments Initial Comments: Physical Exam GENERAL: Patient is well-developed and well-nourished. Patient is nontoxic and well- hydrated and is in no distress. HENT: Normocephalic, Atraumatic. EYES: PERRL, EOMI PULMONARY: Unlabored respirations. No audible rales rhonchi or wheezing was noted. CARDIOVASCULAR: There is a regular rate and rhythm without any murmurs gallops or rubs. ABDOMEN: Soft and nontender with normal bowel sounds. SKIN: Skin is clear with no lesions or rashes and otherwise unremarkable. : Deferred NEUROLOGIC: Alert and oriented to person and place, confused about date MUSCULOSKELETAL: Normal extremities with adequate strength and full range of motion. No lower extremity swelling or edema. No calf tenderness. PSYCHIATRIC: Normal psychiatric evaluation. Course Vital Signs 12/14/19 12/14/19 00:28 01:24 Temperature 98.7 F Pulse Rate 71 59 L Respiratory 24 20 Rate Blood Pressure 176/118 148/68 O2 Sat by Pulse 94 L 95 Oximetry Medical Decision Making - Medical Decision Making Patient was seen and evaluated history was obtained patient and review of medical record History and physical exam are relatively unremarkable, patient was mildly hyp ertensive on arrival however this improved throughout her stay Chest x-ray and labs were unremarkable patient was previously admitted for hypertensive emergency with elevated troponin however today troponin is not elevated blood pressure improved without medications, BNP is not elevated chest x-ray looks better than previous. Patient remains asymptomatic at this time is stable for discharge home. - Lab Data Result diagrams: 12/14/19 00:52 12/14/19 00:52 Lab Results 12/14/19 12/14/19 12/14/19 Range/Units 00:52 00:52 00:52 WBC 6.3 (3.8-10.6) k/uL RBC 4.75 (3.80-5.40) m/uL Hgb 14.2 (11.4-16.0) gm/dL Hct 44.6 (34.0-46.0) % MCV 93.8 (80.0-100.0) fL MCH 30.0 (25.0-35.0) pg MCHC 31.9 (31.0-37.0) g/dL RDW 13.7 (11.5-15.5) % Plt Count 129 L (150-450) k/uL Neutrophils % 73 % Lymphocytes % 18 % Monocytes % 5 % Eosinophils % 2 % Basophils % 1 % Neutrophils # 4.6 (1.3-7.7) k/uL Lymphocytes # 1.1 (1.0-4.8) k/uL Monocytes # 0.3 (0-1.0) k/uL Eosinophils # 0.1 (0-0.7) k/uL Basophils # 0.1 (0-0.2) k/uL PT (9.0-12.0) sec INR (<1.2) APTT (22.0-30.0) sec Sodium 138 (137-145) mmol/L Potassium 4.4 (3.5-5.1) mmol/L Chloride 99 (98-107) mmol/L Carbon Dioxide 35 H (22-30) mmol/L Anion Gap 4 mmol/L BUN 38 H (7-17) mg/dL Creatinine 1.10 H (0.52-1.04) mg/dL Est GFR (CKD-EPI)AfAm 53 (>60 ml/min/1.73 sqM) Est GFR (CKD-EPI)NonAf 46 (>60 ml/min/1.73 sqM) Glucose 96 (74-99) mg/dL Plasma Lactic Acid Chad 0.9 (0.7-2.0) mmol/L Calcium 9.5 (8.4-10.2) mg/dL Total Bilirubin 0.5 (0.2-1.3) mg/dL AST 28 (14-36) U/L ALT 17 (4-34) U/L Alkaline Phosphatase 49 (38-126) U/L Troponin I (0.000-0.034) ng/mL NT-Pro-B Natriuret Pep pg/mL Total Protein 6.8 (6.3-8.2) g/dL Albumin 3.9 (3.5-5.0) g/dL 12/14/19 12/14/19 12/14/19 Range/Units 00:52 00:52 00:52 WBC (3.8-10.6) k/uL RBC (3.80-5.40) m/uL Hgb (11.4-16.0) gm/dL Hct (34.0-46.0) % MCV (80.0-100.0) fL MCH (25.0-35.0) pg MCHC (31.0-37.0) g/dL RDW (11.5-15.5) % Plt Count (150-450) k/uL Neutrophils % % Lymphocytes % % Monocytes % % Eosinophils % % Basophils % % Neutrophils # (1.3-7.7) k/uL Lymphocytes # (1.0-4.8) k/uL Monocytes # (0-1.0) k/uL Eosinophils # (0-0.7) k/uL Basophils # (0-0.2) k/uL PT 9.8 (9.0-12.0) sec INR 0.9 (<1.2) APTT 23.3 (22.0-30.0) sec Sodium (137-145) mmol/L Potassium (3.5-5.1) mmol/L Chloride (98-107) mmol/L Carbon Dioxide (22-30) mmol/L Anion Gap mmol/L BUN (7-17) mg/dL Creatinine (0.52-1.04) mg/dL Est GFR (CKD-EPI)AfAm (>60 ml/min/1.73 sqM) Est GFR (CKD-EPI)NonAf (>60 ml/min/1.73 sqM) Glucose (74-99) mg/dL Plasma Lactic Acid Chad (0.7-2.0) mmol/L Calcium (8.4-10.2) mg/dL Total Bilirubin (0.2-1.3) mg/dL AST (14-36) U/L ALT (4-34) U/L Alkaline Phosphatase (38-126) U/L Troponin I <0.012 (0.000-0.034) ng/mL NT-Pro-B Natriuret Pep 897 pg/mL Total Protein (6.3-8.2) g/dL Albumin (3.5-5.0) g/dL - EKG Data -: EKG Interpreted by Me EKG Comments: EKG was obtained due to complaint of shortness of breath, EKG was obtained at 12:34 AM, rate is 62 rhythm is sinus with a left bundle branch block and with a leftward axis, OR 154, QRS 154, QTC 472, no acute ST elevations or depressions evidence of acute ischemia or infarction. Disposition Clinical Impression: HTN (hypertension) Disposition: HOME SELF-CARE Condition: Stable Instructions (If sedation given, give patient instructions): Hypertension (ED) Is patient prescribed a controlled substance at d/c from ED?: No Referrals: Joslyn Christine MD [Primary Care Provider] - 1-2 days
== END 2019-12-14 03:06 | disposition home or self-care (01) ==
LOC: EC 00:27 → SUPCPDRO 00:27 → EC 03:06
DX: I10 Essential (primary) hypertension (principal); F03.90 Unspecified dementia, unspecified severity, without behavioral disturbance, psychotic disturbance, mood disturbance, and anxiety; Z79.82 Long term (current) use of aspirin; Z79.899 Other long term (current) drug therapy; Z86.79 Personal history of other diseases of the circulatory system; Z87.891 Personal history of nicotine dependence
CPT/HCPCS: 36415; 71046; 80053; 83605; 83880; 84484; 85025; 85610; 85730; 93005; 99285